=== PATIENT | female | born 1950 | race Caucasian/White ===

== ENCOUNTER 2017-04-09 13:12 | Emergency (ER) | payer MEDICARE ==
[~2017-04-09] VITALS: Ht 157.5 cm; Wt 86.0 kg
[~2017-04-09 13:12] MED LIST: ATEN-100 PO; ATOR40TA PO; PENI500T PO; PERC7.5T13 PO
[2017-04-09 13:17] VITALS: BP 148/91; PULSE 76; RESP 16; TEMP 98.5; O2SAT 96
[2017-04-09] MEDS ORDERED: ATOR40TA16 PO (13:26)
[2017-04-09] MEDS ORDERED: ATEN25TA PO (13:26)
[2017-04-09] MEDS ORDERED: MECLIZINE HCL 25 MG TAB PO ONE (13:30)
[2017-04-09] MEDS ORDERED: SODIUM CHLOR 0.9% 1000 ML INJ 1,000 ML IV ONE (13:30)
[2017-04-09 13:45] VITALS: O2SAT 96
[2017-04-09 14:00] LABS: BASOPHIL # 0.3 TH/MM3 (0-0.2); BASOPHIL % 2.2 % (0.0-2.0); EOSINOPHIL % 0.3 % (0.0-4.0); HEMATOCRIT 48.5 % (35.0-46.0); LYMPH % 23.2 % (9.0-44.0); LYMPHOCYTE # 3.6 TH/MM3 (1.0-4.8); MEAN CELL VOLUME 87.3 FL (80.0-100.0); MEAN CORPUSCULAR HEMOGLOBIN 27.3 PG (27.0-34.0); MEAN CORPUSCULAR HGB CONC 31.3 % (32.0-36.0); MONO % 4.6 % (0.0-8.0); NEUT % 69.7 % (16.0-70.0); PLATELET COUNT 302 TH/MM3 (150-450); RED BLOOD COUNT 5.56 MIL/MM3 (4.00-5.30); RED CELL DISTRIBUTION WIDTH 14.2 % (11.6-17.2); WHITE BLOOD COUNT 15.6 TH/MM3 (4.0-11.0)
[2017-04-09 14:03] LABS: CHLORIDE 102 MEQ/L (98-107); HEMO FLAGS AUTO DIFF; SODIUM (NA) 138 MEQ/L (136-145)
[2017-04-09 14:07] LABS: ANION GAP 9 MEQ/L (5-15); BICARBONATE 27.2 MEQ/L (21.0-32.0); BLOOD UREA NITROGEN 10 MG/DL (7-18)
[2017-04-09 14:10] LABS: ALT (GPT) 21 U/L (10-53); AST (GOT) 9 U/L (15-37); GLOMERULAR FILTRATION RATE 93 ML/MIN (>89)
[2017-04-09 14:12] LABS: TOTAL BILIRUBIN ADULT 0.4 MG/DL (0.2-1.0)
[2017-04-09 14:13] LABS: ALKALINE PHOSPHATASE 142 U/L (45-117)
--- NOTE | 2017-04-09 14:16 | PD ---
HPI Chief Complaint: Dizziness Time Seen by Provider: 13:24 Travel History International Travel<30 days: No Contact w/Intl Traveler<30days: No Traveled to known affect area: No History of Present Illness HPI PT STATES THAT SHE WAS DRINKING ETOH, NOT BEYOND WHAT SHE' S USED TO AND APPARENTLY GOT DIZZY THIS AM AND FELL DOWN, NO ILL EFFECT FROM THAT BUT STATEST THAT SHE STILL FEELS UNSTEADY.. DENIES N/V/WALDRON/CP/ABD PAIN PFSH Past Medical History Arthritis: Yes Asthma: No Autoimmune Disease: No Blood Disorders: No Anxiety: No Depression: No Heart Rhythm Problems: No Cancer: Yes (CERVICAL) Cardiovascular Problems: Yes High Cholesterol: Yes Chemotherapy: No Chest Pain: No Congestive Heart Failure: No COPD: No Cerebrovascular Accident: No Diabetes: No Diminished Hearing: No Endocrine: Yes (ADRENAL GLAND TUMOR) Gastrointestinal Disorders: Yes GERD: No Glaucoma: No Genitourinary: No Headaches: No Hepatitis: No Hiatal Hernia: No Hypertension: Yes Immune Disorder: No Kidney Stones: No Musculoskeletal: Yes Neurologic: No Psychiatric: No Reproductive: No Respiratory: No Migraines: No Myocardial Infarction: No Pancreatitis: Yes Radiation Therapy: No Renal Failure: No Seizures: No Sickle Cell Disease: No Sleep Apnea: No Thyroid Disease: No Ulcer: No ?: Not Menopausal: Yes Past Surgical History Abdominal Surgery: No AICD: No Appendectomy: No Arteriovenous Shunt: No Cardiac Surgery: No Cholecystectomy: No Ear Surgery: No Endocrine Surgery: Yes (ADRENAL GLAND TUMOR REMOVED) Eye Surgery: No Genitourinary Surgery: No Gynecologic Surgery: No Insulin Pump: No Joint Replacement: No Oral Surgery: No Pacemaker: No Thoracic Surgery: No Social History Alcohol Use: Yes (3-4 DRINKS PER WEEK) Tobacco Use: No Substance Use: No Allergies-Medications (Allergen,Severity, Reaction): Coded Allergies: No Known Allergies (Verified , 04/09/17) Reported Meds & Prescriptions Reported Meds & Active Scripts Active Reported Atorvastatin (Atorvastatin Calcium) 40 Mg Tab 40 Mg PO HS Atenolol 25 Mg Tab 25 Mg PO DAILY Review of Systems Except as stated in HPI: all other systems reviewed are Neg Physical Exam Narrative GENERAL: SKIN: Warm and dry. HEAD: Atraumatic. Normocephalic. EYES: Pupils equal and round. No scleral icterus. No injection or drainage. WITH EOMI TESTING PATIENT SHOWED A LATERAL FATIGUABLE NYSTAGMUS ENT: No nasal bleeding or discharge. Mucous membranes pink and moist. NECK: Trachea midline. No JVD. CARDIOVASCULAR: Regular rate and rhythm. RESPIRATORY: No accessory muscle use. Clear to auscultation. Breath sounds equal bilaterally. GASTROINTESTINAL: Abdomen soft, non-tender, nondistended. Hepatic and splenic margins not palpable. MUSCULOSKELETAL: Extremities without clubbing, cyanosis, or edema. No obvious deformities. NEUROLOGICAL: Awake and alert. No obvious cranial nerve deficits. Motor grossly within normal limits. Five out of 5 muscle strength in the arms and legs. Normal speech. PSYCHIATRIC: Appropriate mood and affect; insight and judgment normal. Data Data Last Documented VS Vital Signs Date Time Temp Pulse Resp B/P Pulse Ox O2 Delivery O2 Flow Rate FiO2 04/09/17 14:29 74 18 155/73 96 04/09/17 13:17 98.5 Orders Complete Blood Count With Diff (04/09/17 13:25) Comprehensive Metabolic Panel (04/09/17 13:25) Troponin I (04/09/17 13:25) B-Type Natriuretic Peptide (04/09/17 13:25) Urinalysis - C+S If Indicated (04/09/17 13:25) Ct Brain W/O Iv Contrast(Rout) (04/09/17 13:25) Iv Access Insert/Monitor (04/09/17 13:25) Ecg Monitoring (04/09/17 13:25) Oximetry (04/09/17 13:25) Drug Screen, Random Urine (04/09/17 13:25) Alcohol (Ethanol) (04/09/17 13:25) Meclizine (Antivert) (04/09/17 13:30) Sodium Chlor 0.9% 1000 Ml Inj (Ns 1000 M (04/09/17 13:30) Labs Laboratory Tests Test 04/09/17 04/09/17 13:39 14:12 White Blood Count 15.6 TH/MM3 Red Blood Count 5.56 MIL/MM3 Hemoglobin 15.2 GM/DL Hematocrit 48.5 % Mean Corpuscular Volume 87.3 FL Mean Corpuscular Hemoglobin 27.3 PG Mean Corpuscular Hemoglobin 31.3 % Concent Red Cell Distribution Width 14.2 % Platelet Count 302 TH/MM3 Mean Platelet Volume 11.3 FL Neutrophils (%) (Auto) 69.7 % Lymphocytes (%) (Auto) 23.2 % Monocytes (%) (Auto) 4.6 % Eosinophils (%) (Auto) 0.3 % Basophils (%) (Auto) 2.2 % Neutrophils # (Auto) 11.0 TH/MM3 Lymphocytes # (Auto) 3.6 TH/MM3 Monocytes # (Auto) 0.7 TH/MM3 Eosinophils # (Auto) 0.0 TH/MM3 Basophils # (Auto) 0.3 TH/MM3 CBC Comment AUTO DIFF Differential Total Cells 100 Counted Neutrophils % (Manual) 75 % Band Neutrophils % 1 % Lymphocytes % 19 % Monocytes % 4 % Eosinophils % 1 % Neutrophils # (Manual) 11.9 TH/MM3 Differential Comment FINAL DIFF MANUAL Sodium Level 138 MEQ/L Potassium Level 4.0 MEQ/L Chloride Level 102 MEQ/L Carbon Dioxide Level 27.2 MEQ/L Anion Gap 9 MEQ/L Blood Urea Nitrogen 10 MG/DL Creatinine 0.64 MG/DL Estimat Glomerular Filtration 93 ML/MIN Rate Random Glucose 195 MG/DL Calcium Level 9.1 MG/DL Total Bilirubin 0.4 MG/DL Aspartate Amino Transf 9 U/L (AST/SGOT) Alanine Aminotransferase 21 U/L (ALT/SGPT) Alkaline Phosphatase 142 U/L Troponin I LESS THAN 0.02 NG/ML B-Type Natriuretic Peptide 29 PG/ML Total Protein 7.4 GM/DL Albumin 3.5 GM/DL Ethyl Alcohol Level LESS THAN 3 MG/DL Urine Collection Type CLEAN CATCH Urine Color YELLOW Urine Turbidity CLEAR Urine pH 6.5 Urine Specific [place] 1.020 Urine Protein NEG mg/dL Urine Glucose (UA) 500 mg/dL Urine Ketones NEG mg/dL Urine Occult Blood MOD Urine Nitrite NEG Urine Bilirubin NEG Urine Leukocyte Esterase TRACE Urine RBC 0-3 /hpf Urine WBC 0-2 /hpf Urine Squamous Epithelial 0-5 /hpf Cells Microscopic Urinalysis Comment CULT NOT INDICATED Urine Opiates Screen NEG Urine Barbiturates Screen NEG Urine Amphetamines Screen NEG Urine Benzodiazepines Screen NEG Urine Cocaine Screen NEG Urine Cannabinoids Screen NEG MDM Medical Decision Making Medical Screen Exam Complete: Yes Emergency Medical Condition: Yes Medical Record Reviewed: Yes Differential Diagnosis BRAIN TUMOR, ETOH USE, PERIPHERAL VERTIGO, Narrative Course CURRENTLY AWAITING WORKUP, PLAN IS IF CT HEAD CLEAR, CBC/CMP CLEAR THEN NYSTAGMUS IS ATTRIBUTABLE TO ETOH Diagnosis Primary Impression: Vertigo Referrals: Timbo Cintron MD FOR FURTHER EVALUATION OF YOUR LATERAL NYSTAGMUS Patient Instructions: Benign Paroxysmal Positional Vertigo (ED), General Instructions Scripts Meclizine 25 Mg Tab25 Mg PO TID PRN (VERTIGO) #21 TAB Ref 0 Prov:Magno Preston MD 04/09/17 Disposition: 01 DISCHARGE HOME Condition: Stable Magno Preston MD Apr 09, 2017 14:16
[2017-04-09 14:17] LABS: GLUCOSE,URINE 500 mg/dL (NEG); KETONE, URINE NEG (NEG); NITRITE,URINE NEG (NEG); PH, URINE 6.5 (5.0-8.5)
[2017-04-09 14:20] LABS: BLOOD, URINE MOD (NEG); METHOD OF COLLECTION CLEAN CATCH; URINE COLOR YELLOW (YELLW/STRAW)
--- NOTE | 2017-04-09 14:20 | RADHPO ---
EXAM DATE/TIME: 04/09/2017 13:36 [facility] COMPARISON: No previous studies available for comparison. INDICATIONS : Dizziness. RADIATION DOSE: 60.58 CTDIvol (mGy) MEDICAL HISTORY : Hypertension. Cervical cancer. SURGICAL HISTORY : Adrenal tumor removed. ENCOUNTER: Initial ACUITY: 1 day PAIN SCALE: 0/10 LOCATION: cranial TECHNIQUE: Multiple contiguous axial images were obtained of the head. Using automated exposure control and adj ustment of the mA and/or kV according to patient size, radiation dose was kept as low as reasonably a chievable to obtain optimal diagnostic quality images. FINDINGS: CEREBRUM: The ventricles are normal for age. No evidence of midline shift, mass lesion, hemorrhage or acute in farction. No extra-axial fluid collections are seen. POSTERIOR FOSSA: The cerebellum and brainstem are intact. The 4th ventricle is midline. The cerebellopontine angle i s unremarkable. EXTRACRANIAL: The visualized portion of the orbits is intact. SKULL: The calvaria is intact. No evidence of skull fracture. CONCLUSION: No acute intracranial findings. Ernie Stringer MD on April 09, 2017 at 14:16 Board Certified Radiologist. This report was verified electronically.
[2017-04-09 14:21] LABS: COMMENT (UR) CULT NOT INDICATED; CULTURE IF INDICATED CULT NOT INDICATED; RBC, URINE 0-3 /hpf (0-3); SQUAMOUS EPITHELIAL CELL URINE 0-5 /hpf (0-5); WBC, URINE 0-2 /hpf (0-5)
[2017-04-09 14:24] LABS: BANDS 1 % (0-6); EOSINOPHILS 1 % (0-4); NEUTROPHIL # MANUAL DIFF 11.9 TH/MM3 (1.8-7.7); POLYS (SEG NEUTROPHILS) 75 % (16-70); SCAN/DIFF FINAL DIFF MANUAL; WBC DIFF SAMPLE 100
[2017-04-09 14:26] LABS: BARBITURATES, URINE NEG (NEG)
[2017-04-09 14:29] VITALS: BP 155/73; PULSE 74; RESP 18; O2SAT 96
[2017-04-09 14:35] LABS: AMPHETAMINE, URINE NEG (NEG)
[2017-04-09 14:39] LABS: COCAINE, URINE NEG (NEG)
[2017-04-09] MEDS ORDERED: MECL-62 PO (15:08)
[2017-04-09 15:33] VITALS: BP 157/70
== END 2017-04-09 15:35 | disposition home or self-care (01) ==
LOC: PHED 13:12
DX: R42 Dizziness and giddiness (principal); H55.09 Other forms of nystagmus; I10 Essential (primary) hypertension; E78.00 Pure hypercholesterolemia, unspecified; Z87.39 Personal history of other diseases of the musculoskeletal system and connective tissue; Z86.79 Personal history of other diseases of the circulatory system; Z87.19 Personal history of other diseases of the digestive system
CPT/HCPCS: 70450; 80053; 80307; 81001; 83880; 84484; 85007; 85027; 99285; J7030